=== PATIENT | male | born 1950 | race American Indian/Alaskan Native ===

== ENCOUNTER 2018-02-14 11:22 | Emergency (ER) | payer BC, MEDICARE ==
--- NOTE | 2018-02-14 14:07 | RAD ---
PROCEDURE: CHEST RADIOGRAPH, 1 VIEW HISTORY: Seizure COMPARISON: None available. FINDINGS: LUNGS: Clear. PLEURA: No pneumothorax or pleural fluid seen. CARDIOVASCULAR: Normal. OSSEOUS STRUCTURES: Degenerative changes. VISUALIZED UPPER ABDOMEN: Normal. OTHER FINDINGS: None. IMPRESSION: No active disease.
[2018-02-14 14:43] LABS: BARBITURATES, UR NEGATIVE (NEGATIVE); BENZODIAZEPINES, UR NEGATIVE (NEGATIVE); OPIATES, UR NEGATIVE (NEGATIVE); PHENCYCLIDINE, UR NEGATIVE (NEGATIVE); URINE BACTERIA RARE (<OCC); URINE BILIRUBIN NEGATIVE (NEGATIVE); URINE CLARITY Clear (Clear); URINE COLOR Yellow (YELLOW); URINE GLUCOSE (UA) NORMAL (Normal); URINE LEUKOCYTE ESTERASE NEG Leu/uL (Negative); URINE PROTEIN NEGATIVE (NEGATIVE); URINE UROBILINOGEN NORMAL mg/dL (0.2-1.0)
[2018-02-14 14:45] LABS: URINE BLOOD 1+ (NEGATIVE)
[2018-02-14 14:46] VITALS: RESP 17
--- NOTE | 2018-02-14 15:03 | C.PDOC ---
History Of Present Illness 67-year-old male, presents to the emergency department accompanied by , with complaints of seizure. According to patients , patient had an episode of tonic clonic movement at home this morning. He has a Hx of seizures but has not had one in three years. Additionally, patient has an itchy rash that started on lip but is now spreading to face and neck. Patient states he is currently feeling improved, states it feels like dizziness. He denies numbness/ weakness, fever, neck pain, or any other associated symptoms. No other complaints at this time. Time Seen by Provider: 02/14/18 13:13 Chief Complaint (Nursing): Syncope History Per: Patient, Family History/Exam Limitations: no limitations Current Symptoms Are (Timing): Still Present Severity: Moderate Past Medical History Reviewed: Historical Data, Nursing Documentation, Vital Signs Vital Signs: Last Vital Signs Temp 98.4 F 02/14/18 17:52 Pulse 67 02/14/18 17:52 Resp 17 02/14/18 17:52 BP 162/83 H 02/14/18 17:52 Pulse Ox 99 02/14/18 17:52 - Medical History PMH: HTN, Hypercholesterolemia, Seizures (etoh withdrawal seizures in past) Family History: States: No Known Family Hx - Social History Hx Alcohol Use: Yes (past history of alcohol abuse) Hx Substance Use: No - Immunization History Hx Tetanus Toxoid Vaccination: No Hx Influenza Vaccination: No Hx Pneumococcal Vaccination: No Review Of Systems Constitutional: Negative for: Fever, Chills Cardiovascular: Negative for: Chest Pain Respiratory: Negative for: Shortness of Breath Gastrointestinal: Negative for: Nausea, Vomiting, Abdominal Pain Skin: Positive for: Rash Neurological: Positive for: Seizures. Negative for: Weakness, Numbness, Headache, Dizziness Physical Exam - Physical Exam Appears: Non-toxic, No Acute Distress, Other (cachectic, thin appearing) Skin: Normal Color, Warm, Dry, Rash (papular rash, weeping serous fluid, left side of lip and mouth, extending fown to left side of neck with excoriations) Head: Atraumatic, Normacephalic Eye(s): bilateral: PERRL, EOMI, Other (Arcus senilis) Nose: Normal Oral Mucosa: Moist Tongue: Normal Appearing Lips: Normal Appearing Throat: No Erythema, No Exudate Neck: Normal ROM, Supple Chest: Symmetrical, No Tenderness Cardiovascular: Rhythm Regular, No Friction Rub, No Murmur Respiratory: Normal Breath Sounds, No Accessory Muscle Use, No Wheezing Gastrointestinal/Abdominal: Soft, No Tenderness Extremity: Normal ROM, No Deformity, No Swelling Neurological/Psych: Oriented x3, Normal Speech, Normal Motor Gait: Steady ED Course And Treatment - Laboratory Results Result Diagrams: 02/14/18 15:02 02/14/18 15:02 O2 Sat by Pulse Oximetry: 100 (RA) Pulse Ox Interpretation: Normal Medical Decision Making Medical Decision Making: Plan: * EKG * Bloodwork * Chest X-Ray * UA * Reassess and Disposition On re-exam, the patient alert and oriented x3, ambulatory in the ED with steady gait. Case was discussed with Dr. Fletcher who states initially the rash was vesicular and treated with topical acyclovir 3 days ago. The wound is itchy, but oozing serous ?purulent fluid. The wound may have a suprainfection. Patient treated with Bactrim and Keflex PO. The patient will follow up with [facility] for wound check in 2 days and his neurologist outpatient. Disposition Counseled Patient/Family Regarding: Studies Performed, Diagnosis, Need For Followup (Patient was made aware of elevated BP in the ED, states he hasn't taken his medications. ) - Disposition Referrals: Jesus Fletcher MD [Staff Provider] - Disposition: HOME/ ROUTINE Disposition Time: 17:00 Condition: FAIR Additional Instructions: Follow up with the medical doctor within 1-2 days. Return if worsened. Prescriptions: Cephalexin [Keflex] 500 mg PO BID #19 capsule DiphenhydrAMINE [Benadryl] 25 mg PO QID #28 cap Mupirocin 2% Cream [Bactroban 2%] 30 gm EXT TID #3 tube Sulfamethoxazole/Trimethoprim [Bactrim DS 800 mg-160 mg] 1 tab PO BID #14 tab Instructions: Seizures, Adult (DC), Cellulitis (Skin Infection), Adult (DC) Forms: [facility] (Scottish) - Clinical Impression Clinical Impression: Seizure, Cellulitis - Scribe Statement The provider has reviewed the documentation as recorded by the Scribe (Danii Lay) All medical record entries made by the Scribe were at my direction and personally dictated by me. I have reviewed the chart and agree that the record accurately reflects my personal performance of the history, physical exam, medical decision making, and the department course for this patient. I have also personally directed, reviewed, and agree with the discharge instructions and disposition.
[2018-02-14 15:12] LABS: BASO # 0.1 K/uL (0.0-0.2); BASO % 1.1 % (0.0-2.0); EOS # 0.2 K/uL (0.0-0.7); EOS % 1.6 % (0.0-4.0); HEMOGLOBIN 11.9 g/dL (12.0-18.0); LYMPH # 1.9 K/uL (1.0-4.3); LYMPH % 19.4 % (20.0-40.0); MEAN CELL VOLUME 79.8 fL (80.0-94.0); MEAN CORPUSCULAR HEMOGLOBIN 27.7 pg (27.0-31.0); MEAN CORPUSCULAR HGB CONC 34.8 g/dL (33.0-37.0); MEAN PLATELET VOLUME 8.7 fL (7.2-11.7); MONO # 0.6 K/uL (0.0-0.8); MONO % 5.9 % (0.0-10.0); NEUT # 7.3 K/uL (1.8-7.0); NRBC % 0.1 % (0.0-2.0); RBC 4.29 Mil/uL (4.40-5.90); RED CELL DISTRIBUTION WIDTH 14.2 % (11.5-14.5); WHITE BLOOD COUNT 10.1 K/uL (4.8-10.8)
[2018-02-14 15:30] LABS: ALB/GLOB RATIO 1.1 (1.0-2.1); ALBUMIN 3.7 g/dL (3.5-5.0); ALT/SGPT 18 U/L (21-72); AST/SGOT 23 U/L (17-59); BLOOD UREA NITROGEN 13 mg/dL (9-20); CALCIUM 9.6 mg/dl (8.6-10.4); GFR AFRICAN-AMERICAN > 60; GFR NON-AFRICAN AMERICAN > 60
[2018-02-14] MEDS ORDERED: Tmp-Smz 800 mg-160 mg DS Tab PO STA (17:10)
[2018-02-14] MEDS ORDERED: Tmp-Smz 800 mg-160 mg DS Tab ONE (17:54)
[2018-02-14 18:11] VITALS: BP 162/83; PULSE 67; TEMP 98.4
[2018-02-15 09:11] VITALS: O2SAT 100
--- NOTE | 2018-02-15 12:11 | CARD ---
APPROVED REPORT EKG Measurement Heart [id number] <Conclusion> Normal sinus rhythm with sinus arrhythmia Left anterior fascicular block Anteroseptal infarct, age undetermined Abnormal ECG
== END 2018-02-14 18:17 | disposition home or self-care (01) ==
LOC: C.ER 11:22
DX: G40.909 Epilepsy, unspecified, not intractable, without status epilepticus (principal); K13.0 Diseases of lips
CPT/HCPCS: 71045; 80053; 81001; 82948; 85025; 93005; 99285; G0480